=== PATIENT | female | born 1995 | race Caucasian/White ===

== ENCOUNTER 2018-10-11 22:46 | Emergency (ER) | payer SELFPAY ==
[~2018-10-11] VITALS: Ht 154.9 cm; Wt 54.4 kg
[2018-10-11 23:21] VITALS: BP 136/79
--- NOTE | 2018-10-12 00:44 | NUR ---
pt ambulated to bed 4
--- NOTE | 2018-10-12 00:44 | NUR ---
PT PRESENTS TO ED WITH BILAT LOWER ABD PAIN 05/11 WITH N/V X2 DAYS. PAIN WITH PALPATION AND POSITION CHANGE. PT DENIES CHANGE IN URINATION. NON-RADIATING PAIN. VSS. POSITIONED IN BED FOR COMFORT. ACCOMPANIED BY FAMILY. VSS. CONTINUE TO MONITOR.
[2018-10-12] MEDS ORDERED: ONDANSETRON 4 MG ODT PO ONE (01:10)
[2018-10-12] MEDS ORDERED: ACETAMINOPHEN 325 MG TAB PO ONE (01:10)
[2018-10-12 01:34] LABS: BASOPHILS % (AUTO) 0.4 % (0.0-2.0); EOSINOPHILS # (AUTO) 0.1 K/uL (0-0.4); EOSINOPHILS % (AUTO) 0.9 % (0.0-4.0); HEMOGLOBIN 13.3 g/dL (12.0-16.0); LYMPHOCYTES # (AUTO) 3.2 K/uL (2.5-16.5); LYMPHOCYTES % (AUTO) 30.3 % (20.5-51.1); MEAN CORPUSCULAR HEMOGLOBIN 28 pg (27-31); MEAN CORPUSCULAR HGB CONC 33 g/dL (33-37); MEAN CORPUSCULAR VOLUME 83.6 fL (80-94); MONOCYTES # (AUTO) 0.9 K/uL (0.8-1.0); MONOCYTES % (AUTO) 8.3 % (1.7-9.3); NEUTROPHILS # (AUTO) 6.3 K/uL (1.8-7.7); NEUTROPHILS % (AUTO) 60.1 % (42.2-75.2); PLATELET COUNT (AUTO) 253 K/uL (140-450); RED BLOOD CELL COUNT(AUTO) 4.79 MIL/uL (4.20-5.40); RED CELL DISTRIBUTION WIDTH 13.3 % (11.6-13.7); WHITE BLOOD COUNT (AUTO) 10.4 K/uL (4.8-10.8)
[2018-10-12 01:52] LABS: APPEARANCE,URINE CLEAR (CLEAR); BILIRUBIN,URINE NEGATIVE (NEGATIVE); BLOOD, URINE NEGATIVE (NEGATIVE); COLOR,URINE YELLOW (YELLOW); LEUKOCYTE ESTERASE ,URINE NEGATIVE (NEGATIVE); NITRITE, URINE NEGATIVE (NEGATIVE); PH,URINE 6.5 (5.0-9.0); UGLUCOSE NEGATIVE (NEGATIVE)
[2018-10-12 02:08] VITALS: BP 128/77
[2018-10-12 02:11] LABS: POTASSIUM 3.4 mmol/L (3.5-5.1)
[2018-10-12 02:12] LABS: CARBON DIOXIDE 23.4 mmol/L (21-32); CREATININE 0.5 mg/dL (0.6-1.3); TOTAL BILIRUBIN 0.4 mg/dL (0.0-1.0)
[2018-10-12 02:13] LABS: ALBUMIN 3.8 g/dL (3.4-5.0)
--- NOTE | 2018-10-12 02:28 | NUR ---
Patient discharged with v/s stable. Written and verbal after care instructions given and explained. Patient verbalized understanding. Ambulatory with steady gait. All questions addressed prior to discharge. Advised to follow up with PMD.
== END 2018-10-12 02:08 | disposition home or self-care (01) ==
LOC: MED 22:46
DX: O21.8 Other vomiting complicating pregnancy (principal); O26.891 Other specified pregnancy related conditions, first trimester; R51 Headache; R10.30 Lower abdominal pain, unspecified
CPT/HCPCS: 36415; 80053; 81003; 81025; 84702; 85025; 99283; Q0162; 81002

== ENCOUNTER 2022-08-04 10:03 | Emergency (ER) | payer SELFPAY ==
[~2022-08-04] VITALS: Ht 154.9 cm; Wt 63.0 kg
[2022-08-04 10:04] VITALS: BP 133/76
--- NOTE | 2022-08-04 10:12 | NUR ---
PT AMB TO BED 7.
--- NOTE | 2022-08-04 10:23 | NUR ---
27 y/o female bib self with c/o body aches, cough, sore throat, subjective fever and headache x 3 days. Per patient, denies taking any medication at home. Patient is currently 16 weeks . Denies SOB. Medical History: ASTHMA NKDA
--- NOTE | 2022-08-04 10:39 | NUR ---
Dr. Miranda evaluating patient at bedside.
[2022-08-04] MEDS ORDERED: ALBUTEROL SULFATE/IPRATROPIU 3 ML SOL IH ONE (10:45)
[2022-08-04] MEDS ORDERED: ACETAMINOPHEN EXTRA STRENGTH 500 MG TAB PO ONE (10:45)
--- NOTE | 2022-08-04 10:56 | NUR ---
ANGELIC and Flu swabs obtained, handed to CPT at bedside.
--- NOTE | 2022-08-04 10:59 | NUR ---
[facility] THERAPY [facility] RESPIRATORY DRUG GIVEN ORDERED ENCOURAGED PTIENT FOR INTERMITTENT DEEP BREATHING DURING THERAPY
--- NOTE | 2022-08-04 12:14 | NUR ---
Dr. Miranda re-evaluating patient at bedside.
[2022-08-04] MEDS ORDERED: ACET-10509 PO (12:16)
[2022-08-04] MEDS ORDERED: PRON INH (12:16)
[2022-08-04 12:23] VITALS: BP 115/66
--- NOTE | 2022-08-04 12:23 | NUR ---
Patient discharged with v/s stable. Written and verbal after care instructions given. Patient alert, oriented and verbalized understanding of instructions. Ambulatory with steady gait. All questions addressed prior to discharge. ID band removed. Patient advised to follow up with PMD. Rx of Albuterol Sufate and Tylenol given. Opportunity to ask questions provided and answered.
--- NOTE | 2022-08-04 12:25 | NUR ---
Chart checked and completed. The patient's care was reviewed and supervised by Mariana Kang RN.
== END 2022-08-04 12:23 | disposition home or self-care (01) ==
LOC: MED 10:03
DX: O26.892 Other specified pregnancy related conditions, second trimester (principal); Z20.822 Contact with and (suspected) exposure to COVID-19; J06.9 Acute upper respiratory infection, unspecified; J45.909 Unspecified asthma, uncomplicated; Z3A.16 16 weeks gestation of pregnancy; Z79.899 Other long term (current) drug therapy
CPT/HCPCS: 94640; 99283